=== PATIENT | female | born 2005 | race Caucasian/White ===

== ENCOUNTER 2024-01-16 00:21 | Emergency (ER) | payer OTHER, SELFPAY ==
[2024-01-16 00:36] VITALS: BP 152/99; PULSE 69; RESP 16; TEMP 36.8; O2SAT 98; BMI 17.7
--- NOTE | 2024-01-16 01:24 | ED.ABDPAIN ---
HPI - Abdominal Pain General Date Seen: 01/16/24 Chief Complaint: Abdominal Pain Stated Complaint: Abdominal Pain Time Seen by Provider: 01/16/24 00:59 Source: patient and family Mode of arrival: ambulatory Limitations: no limitations History of Present Illness HPI narrative: Patient is a 18-year-old female brought in by her mother with complaints of epigastric pain that began around 11:00 p.m.. The pain did not radiate. She denies acid reflux. She fell constipated earlier today but was able to have a bowel movement. Her intake today includes cereal, [employer], and most recently a corn dog. She did not take anything for this prior to coming to the ER. She has not found anything that makes the pain any better or any worse. The pain is not debilitating. Is never had this previously. For POTS she takes metoprolol and Fluorinef. She is also on Vyvanse. No black or bloody stools. No urinary symptoms. Related Data Home Medications ?Medication ?Instructions ?Recorded ?Confirmed hydroxyzine HCl 25 mg tablet 25 - 50 mg PO QPM PRN 11/27/22 01/16/24 lisdexamfetamine 40 mg capsule 40 mg PO QAM 11/27/22 01/16/24 (Vyvanse) metoprolol succinate 50 mg 50 mg PO QDAY 11/27/22 01/16/24 tablet,extended release 24 hr fludrocortisone 0.1 mg tablet 0.1 mg PO DAILY 12/03/23 01/16/24 trazodone 50 mg tablet 50 mg PO QPM 12/17/23 01/16/24 Allergies Allergy/AdvReac Type Severity Reaction Status Date / Time cherries Allergy Severe Anaphylaxis Uncoded 11/19/23 13:54 Review of Systems Narrative Review of systems is outlined above otherwise noted to be negative. [facility] Social History Smoking Status: Never smoker How often do you have a drink containing alcohol: never AUDIT-C Alcohol total score: 0 Non-prescribed substance use: denies use Exam Narrative: Exam Narrative: Vitals noted. HEENT: Conjunctiva clear. Neck is supple without adenopathy, thyromegaly. Lungs: Clear to auscultation in all garcia. No wheezes, rales, rhonchi. Heart: Regular rate and rhythm without murmur. Abdomen: Soft and nontender. No guarding, rigidity, rebound. Bowel sounds are normal. No palpable masses. Sanchez sign is negative. Extremities: No cyanosis or edema. Good distal pulses. Skin: No abnormalities noted of the exposed skin. Neurologic: Awake, alert, fully oriented. Neurologic exam is nonfocal. Const: Vital Signs, click to edit/add: Vital Signs - 24 hr 01/16/24 00:36 Temperature 98.3 F Pulse Rate [Pulse Oximeter] 69 Respiratory Rate 16 Blood Pressure [Ri ght Upper Arm] 152/99 H Pulse Oximetry 98 Oxygen Delivery Me thod Room Air Course Course ED Course: Patient seen and examined. GI cocktail is given. Labs are ordered. Reevaluation(s) Reevaluation #1: She has had some improvement in her pain with the GI cocktail. Reevaluation #2: Labs are all normal. Patient is feeling better and is ready for discharge. Vital Signs Vital signs: Initial Vital Signs Temperature 98.3 F 01/16/24 00:36 Temperature Source Temporal Artery Scan 01/16/24 00:36 Pulse Rate 69 01/16/24 00:36 Respiratory Rate 16 01/16/24 00:36 Blood Pressure 152/99 H 01/16/24 00:36 Blood Pressure Mean 116 H 01/16/24 00:36 Blood Pressure Position Sitting 01/16/24 00:36 Pulse Oximetry 98 01/16/24 00:36 Oxygen Delivery Method Room Air 01/16/24 00:36 Vital Signs Temperature 98.3 F 01/16/24 00:36 Pulse Rate 69 01/16/24 00:36 Respiratory Rate 16 01/16/24 00:36 Blood Pressure 152/99 H 01/16/24 00:36 Pulse Oximetry 98 01/16/24 00:36 Oxygen Delivery Method Room Air 01/16/24 00:36 Temperature 98.3 F 01/16/24 00:36 Pulse Rate 69 01/16/24 00:36 Respiratory Rate 16 01/16/24 00:36 Blood Pressure 152/99 H 01/16/24 00:36 Pulse Oximetry 98 01/16/24 00:36 Oxygen Delivery Method Room Air 01/16/24 00:36 Medications Administered Medications: Discontinued Medications Generic Name Dose Route Start Last Admin Trade Name Freq PRN Reason Stop Dose Admin Lidocaine/Aluminum/Magnesium/Simeth 30 ml 01/16/24 01:24 01/16/24 01:27 Gi Cocktail (Visc Lido/Antacid) 30 Ml PO 01/16/24 01:25 30 ml ONCE ONE Administration MDM - Abdominal Pain Lab Data Labs: Lab Results 01/16/24 01/16/24 Range/Units 01:23 01:35 WBC 5.86 (4.50-11.00) K/uL RBC 4.07 (4.00-5.20) m/uL Hgb 12.2 (12.0-16.0) gm/dL Hct 37.2 (33.0-51.0) % MCV 91 (80-100) fL MCH 30 (26-34) pg MCHC 33 (32-36) gm/dL RDW Coeff of Jorge 13.1 (11.5-15.5) % Plt Count 180 (140-440) K/uL Neut % (Auto) 53.7 (42.0-72.0) % Lymph % (Auto) 34.3 (20-44) % [place] % (Auto) 7.5 (0.0-11.0) % Eos % (Auto) 3.8 (0.0-7.0) % Baso % (Auto) 0.7 (0.0-3.0) % Neut # (Auto) 3.15 (1.7-7.0) K/uL Lymph # (Auto) 2.01 (0.90-2.90) K/uL [place] # (Auto) 0.40 (0.00-0.90) K/UL Eos # (Auto) 0.22 (0.00-0.50) K/uL Baso # (Auto) 0.04 (0.00-0.30) K/uL Abs Immat Gran (auto) 0.00 (0.00-0.30) K/uL Imm/Tot Granulo (auto) 0.0 % Sodium 139 (135-149) mmol/L Potassium 3.7 (3.6-5.1) mmol/L Chloride 107 (96-114) mmol/L Carbon Dioxide 25 (20-32) mmol/L Anion Gap 7 (7-15) mEq/L BUN 11 (5-24) mg/dL Creatinine 0.6 (0.6-1.2) mg/dL Estimated Creat Clear 129.59 Estimated GFR 133 ml/min Glucose 99 (60-115) mg/dL Calcium 9.2 (8.7-10.8) mg/dL Total Bilirubin 0.4 (0.1-1.5) mg/dL Direct Bilirubin 0.2 (0.0-0.5) mg/dL AST 24 (12-35) U/L ALT 14 (4-35) U/L Alkaline Phosphatase 47 (40-150) U/L Total Protein 6.5 (6.0-8.3) g/dL Albumin 4.3 (3.3-5.0) g/dL Lipase 63 (23-300) U/L Discharge Plan Discharge Clinical Impression: Indigestion Patient Disposition: Home w/ Parent or Adult Condition: Improved Additional Instructions: Tums or Pepcid for acid indigestion. [place] diet. Avoid eating just before bed. Follow-up with your PCP if symptoms persist. Prescriptions: No Action metoprolol succinate 50 mg tablet extended release 24 hr 50 mg PO QDAY Vyvanse 40 mg capsule 40 mg PO QAM hydroxyzine HCl 25 mg tablet 25 - 50 mg PO QPM PRN fludrocortisone 0.1 mg tablet 0.1 mg PO DAILY trazodone 50 mg tablet 50 mg PO QPM Follow Up/Referrals: Provider,Not a Local [Primary Care Provider] - Stand Alone Forms: [facility] Info Instructions
[2024-01-16] MEDS: GI COCKTAIL (VISC LIDO/ANTACID) 30 ML PO (01:27)
[2024-01-16 01:44] LABS: Basophils Absolute Auto 0.04 K/uL (0.00-0.30); Basophils Percent Auto 0.7 % (0.0-3.0); Eosinophils Absolute Auto 0.22 K/uL (0.00-0.50); Eosinophils Percent Auto 3.8 % (0.0-7.0); Hematocrit 37.2 % (33.0-51.0); Hemoglobin* 12.2 gm/dL (12.0-16.0); Lymphocytes Absolute Auto 2.01 K/uL (0.90-2.90); Lymphocytes Percent Auto 34.3 % (20-44); Mean Corpuscular HGB Conc 33 gm/dL (32-36); Mean Corpuscular Hemoglobin 30 pg (26-34); Mean Corpuscular Volume 91 fL (80-100); Monocytes Percent Auto 7.5 % (0.0-11.0); Neutrophils Absolute Auto 3.15 K/uL (1.7-7.0); Neutrophils Percent Auto 53.7 % (42.0-72.0); Platelet Count* 180 K/uL (140-440); RDW Coefficient of Variation % 13.1 % (11.5-15.5); Red Blood Count 4.07 m/uL (4.00-5.20); White Blood Count* 5.86 K/uL (4.50-11.00)
[2024-01-16 01:52] LABS: Slide Review Reflex No
[2024-01-16 02:11] LABS: Albumin* 4.3 g/dL (3.3-5.0); Chloride* 107 mmol/L (96-114); Sodium* 139 mmol/L (135-149)
[2024-01-16 02:12] LABS: Potassium* 3.7 mmol/L (3.6-5.1)
[2024-01-16 02:14] LABS: Alkaline Phosphatase* 47 U/L (40-150); Anion Gap 7 mEq/L (7-15); Aspartate Amino Transferase* 24 U/L (12-35); Bilirubin Direct* 0.2 mg/dL (0.0-0.5); Bilirubin Total* 0.4 mg/dL (0.1-1.5); Blood Urea Nitrogen* 11 mg/dL (5-24); Carbon Dioxide* 25 mmol/L (20-32); Creatinine* 0.6 mg/dL (0.6-1.2); Est. Creatinine Clearance* 129.59; Estimated Glomerular Filt Rate 133 ml/min; Glucose* 99 mg/dL (60-115); Total Protein* 6.5 g/dL (6.0-8.3)
[2024-01-16 02:15] LABS: Alanine Aminotransferase* 14 U/L (4-35); Calcium* 9.2 mg/dL (8.7-10.8); Lipase* 63 U/L (23-300)
[2024-01-16 02:27] VITALS: PULSE 66; RESP 16; O2SAT 99
== END 2024-01-16 02:30 | disposition home or self-care (01) ==
PROVIDERS: Emergency Provider Family Medicine
DX: K30 Functional dyspepsia (principal)
CPT/HCPCS: 36415; 80048; 80076; 83690; 85025; 99282; 99283; A9270

== ENCOUNTER 2024-02-18 09:30 | Outpatient (RCR) | payer OTHER, SELFPAY ==
[2023-11-19 13:34] VITALS: BP 142/86; PULSE 77; RESP 16; TEMP 37; O2SAT 100
[2023-11-19] MEDS: SODIUM CHLORIDE 0.9 % (FLUSH) 10 ML SYRINGE IVF (14:01)
[2023-11-19] MEDS: LACTATED RINGERS 1000 ML IV (14:01)
--- NOTE | 2023-11-19 14:17 | PC.NURSE ---
Addendum entered by Asmita Jeter RN 11/19/23 15:22: Report received from Master TODD. At 1500, pt c/o chest pain 5.5/10 and nausea improved. Received call back from [facility] at 1515 and they did not recommend any further work up and they would follow up with pt. Informed pt of this recommendation and pt verbalized understanding of plan of care. Original Note: Patient presented to infusion center with nausea and reported chest pain 7/10. Vitally stable, HR regular upon palpation. Patient reports feeling more out of it than normal. remote mortgage underwriter contacted [facility] ped cardiology and placed a message to Dr. Pawan Harvey inquiring about further intervention.
[2023-11-19 15:20] VITALS: BP 121/73; PULSE 71; RESP 18; O2SAT 99
[2023-12-03 10:15] VITALS: BP 119/90; PULSE 95; RESP 16; TEMP 36.2; O2SAT 100
[2023-12-03] MEDS: LACTATED RINGERS 1000 ML 1,000 ML 500 ML IV (10:30)
[2023-12-17 09:51] VITALS: BP 125/89; PULSE 99; TEMP 36.6; O2SAT 99
[2023-12-17] MEDS: SODIUM CHLORIDE 0.9 % (FLUSH) 10 ML SYRINGE IVF (10:27)
[2023-12-17] MEDS: LACTATED RINGERS 1000 ML 1,000 ML IV (10:27)
[2024-01-01 09:42] VITALS: BP 132/84; PULSE 76; RESP 16; TEMP 36.3; O2SAT 100
[2024-01-01] MEDS: LACTATED RINGERS 1000 ML 1,000 ML IV (09:50)
[2024-01-01] MEDS: SODIUM CHLORIDE 0.9 % (FLUSH) 10 ML SYRINGE IVF (09:50)
--- NOTE | 2024-01-01 10:07 | ONC.NURNOTE ---
Patient requesting to come in 1 day early for next appointment due to january 14 holiday. DIRECT OF REAL ESTATE wrote order to allow 1 day early. Patient would like to stay on a Friday schedule after this.
[2024-01-14 09:47] VITALS: BP 129/83; PULSE 69; TEMP 36.9; O2SAT 99
[2024-01-14] MEDS: LACTATED RINGERS 1000 ML 1,000 ML IV (10:05)
[2024-01-14] MEDS: SODIUM CHLORIDE 0.9 % (FLUSH) 10 ML SYRINGE IVF (10:05)
[2024-02-04 08:56] VITALS: BP 121/86; PULSE 72; RESP 16; TEMP 36.4; O2SAT 100
[2024-02-04] MEDS: LACTATED RINGERS 1000 ML 1,000 ML IV (09:27)
[2024-02-04] MEDS: SODIUM CHLORIDE 0.9 % (FLUSH) 10 ML SYRINGE IVF (09:27)
[2024-02-18 09:44] VITALS: BP 136/93; PULSE 71; RESP 16; TEMP 36.9; O2SAT 99
[2024-02-18] MEDS: LACTATED RINGERS 1000 ML 1,000 ML IV (10:09)
[2024-02-18] MEDS: SODIUM CHLORIDE 0.9 % (FLUSH) 10 ML SYRINGE IVF (10:09)
== END 2024-05-17 23:59 | disposition home or self-care (01) ==
LOC: CCIC 09:30
PROVIDERS: Visit Provider Clinical Nurse Specialist
DX: G90.A Postural orthostatic tachycardia syndrome [POTS] (principal)
CPT/HCPCS: 96360; 96365; J7120

== ENCOUNTER 2025-05-09 10:30 | Outpatient (RCR) | payer OTHER, SELFPAY ==
[2024-11-23 13:39] VITALS: BP 134/87; PULSE 74; RESP 18; TEMP 36.3; O2SAT 97
[2024-11-23] MEDS: LACTATED RINGERS 1000 ML 1,000 ML 673 ML IV (14:06)
[2024-12-07 14:00] VITALS: BP 132/86; PULSE 66; RESP 16; TEMP 36.3; O2SAT 99
[2024-12-07] MEDS: LACTATED RINGERS 1000 ML 1,000 ML 670 ML IV (14:20)
[2024-12-21 14:23] VITALS: BP 123/85; PULSE 72; RESP 16; O2SAT 98
[2024-12-21] MEDS: LACTATED RINGERS 1000 ML 1,000 ML IV (14:23)
[2024-12-21] MEDS: SODIUM CHLORIDE 0.9 % (FLUSH) 10 ML SYRINGE IVF (14:23)
[2025-01-04 13:59] VITALS: BP 134/75; PULSE 70; RESP 17; TEMP 36.7; O2SAT 100
[2025-01-04] MEDS: LACTATED RINGERS 1000 ML 1,000 ML IV (14:11)
[2025-01-18 14:07] VITALS: BP 127/85; PULSE 79; RESP 16; TEMP 37.1; O2SAT 97
[2025-01-18] MEDS: SODIUM CHLORIDE 0.9 % (FLUSH) 10 ML SYRINGE IVF (14:27)
[2025-01-18] MEDS: LACTATED RINGERS 1000 ML 1,000 ML IV (14:27)
[2025-02-01 14:01] VITALS: BP 119/62; PULSE 82; TEMP 36.7; O2SAT 97
[2025-02-01] MEDS: LACTATED RINGERS 1000 ML 1,000 ML 800 ML IV (14:43)
[2025-02-15 14:09] VITALS: BP 116/82; PULSE 66; TEMP 36.6; O2SAT 100
[2025-02-15] MEDS: LACTATED RINGERS 1000 ML 1,000 ML IV (14:31)
[2025-02-15] MEDS: SODIUM CHLORIDE 0.9 % (FLUSH) 10 ML SYRINGE IVF (14:31)
[2025-03-01] MEDS: LACTATED RINGERS 1000 ML 1,000 ML IV (11:16)
[2025-03-01] MEDS: SODIUM CHLORIDE 0.9 % (FLUSH) 10 ML SYRINGE IVF (11:16)
[2025-03-01 11:48] VITALS: BP 129/87; PULSE 79; RESP 16; TEMP 36.6; O2SAT 97
[2025-05-09] MEDS: LACTATED RINGERS 1000 ML 1,000 ML 670 ML IV (10:56)
[2025-05-09 11:20] VITALS: BP 130/80; PULSE 77; RESP 16; TEMP 36.7; O2SAT 99
== END 2025-05-22 23:59 | disposition home or self-care (01) ==
LOC: CCIC 10:30
PROVIDERS: Visit Provider Clinical Nurse Specialist
DX: G90.A Postural orthostatic tachycardia syndrome [POTS] (principal)
CPT/HCPCS: 96360; 96361; J7120